=== PATIENT | female | born 1980 | race Caucasian/White ===

== ENCOUNTER 2017-05-08 08:45 | Emergency (ER) | payer MEDICAID ==
[~2017-05-08] VITALS: Ht 152.4 cm; Wt 45.4 kg
[2017-05-08 08:48] VITALS: Ht 152.4 cm; Wt 45.4 kg
[2017-05-08 10:03] VITALS: BP 111/64
== END 2017-05-08 10:03 | disposition home or self-care (01) ==
LOC: ED 08:45
DX: J02.9 Acute pharyngitis, unspecified (principal); R11.0 Nausea

== ENCOUNTER 2018-04-05 12:51 | Emergency (ER) | payer MEDICAID ==
[~2018-04-05] VITALS: Ht 154.9 cm; Wt 48.3 kg
[2018-04-05 13:10] VITALS: BP 111/64; Ht 154.9 cm; Wt 48.3 kg
== END 2018-04-05 15:21 | disposition home or self-care (01) ==
LOC: ED 12:51
DX: J11.1 Influenza due to unidentified influenza virus with other respiratory manifestations (principal)
CPT/HCPCS: 87804

== ENCOUNTER 2018-09-27 11:19 | Emergency (ER) | payer MEDICAID, OTHER ==
[~2018-09-27] VITALS: Ht 154.9 cm; Wt 46.3 kg
[2018-09-27 11:59] VITALS: Ht 154.9 cm; Wt 46.3 kg
[2018-09-27 12:34] LABS: BASOPHIL % 1.1 % (0-2); PLATELET COUNT 272 x10^3mcL (130-400)
[2018-09-27 12:35] LABS: RED CELL DISTRIBUTION WIDTH 31.3 % (11.5-14.5)
[2018-09-27 12:48] LABS: CALCIUM 9.3 mg/dL (8.5-10.1); CARBON DIOXIDE 32.5 mmol/L (21-32); CHLORIDE SERUM 106 mmol/L (98-107); CREATININE SERUM 0.6 mg/dL (0.6-1.0); GFR1 > 60 mL/min; GLUCOSE SERUM 107 mg/dL (74-106); SODIUM SERUM 143 mmol/L (136-145)
[2018-09-27 12:50] LABS: ALBUMIN 3.9 g/dL (3.4-5.0); ALKALINE PHOSPHATASE 60 U/L (46-116); ALT/SGPT 30 U/L (14-59); AST/SGOT 16 U/L (15-37); BILIRUBIN TOTAL 0.4 mg/dL (0.20-1.00); TOTAL PROTEIN, SERUM 7.3 g/dL (6.4-8.2)
[2018-09-27 12:58] LABS: rbc morphology (normal/abnorm) ABNORMAL (NORMAL)
[2018-09-27 15:49] VITALS: BP 100/58
== END 2018-09-27 15:49 | disposition home or self-care (01) ==
LOC: ED 11:19
DX: N93.9 Abnormal uterine and vaginal bleeding, unspecified (principal); G47.00 Insomnia, unspecified
CPT/HCPCS: 36415; 87491; 87591

== ENCOUNTER 2018-11-10 09:34 | Emergency (ER) | payer OTHER ==
[~2018-11-10] VITALS: Ht 160 cm; Wt 45.8 kg
[2018-11-10 09:43] VITALS: Ht 160 cm; Wt 45.8 kg
[2018-11-10 10:59] LABS: microscopic required? NO
[2018-11-10 11:53] LABS: UA SPECIFIC GRAVITY >1.030 (1.005-1.035); urine erythrocyte NEGATIVE (NEGATIVE)
[2018-11-10 12:22] LABS: PLATELET COUNT 273 x10^3mcL (130-400)
[2018-11-10 12:23] LABS: RED CELL DISTRIBUTION WIDTH 23.2 % (11.5-14.5)
[2018-11-10 14:40] VITALS: BP 128/80
== END 2018-11-10 14:40 | disposition home or self-care (01) ==
LOC: ED 09:34
PROVIDERS: Emergency Medicine
DX: N92.0 Excessive and frequent menstruation with regular cycle (principal); Z86.2 Personal history of diseases of the blood and blood-forming organs and certain disorders involving the immune mechanism
CPT/HCPCS: 36415